=== PATIENT | male | born 1970 | race Caucasian/White ===

== ENCOUNTER 2020-10-19 20:24 | Observation (INO) | payer BC ==
[2020-10-19 21:16] LABS: #Eosinphils 0.2 thou/uL (0.0-0.7); #Lymphocytes 3.7 thou/uL (1.20-3.40); #Monocytes 1.3 thou/uL (0.11-0.59); %Basophils 0.1 % (0.0-1.0); %Eosinophils 1.7 % (0.0-10.0); %Lymphocytes 27.9 % (21.0-51.0); %Monocytes 9.8 % (0.0-10.0); %Neutrophils 60.5 % (42.0-75.0); Hemoglobin 14.8 g/dL (14.0-18.0); Mean Corpuscular HGB CONC 34.4 g/dL (32.0-36.0); Mean Corpuscular Hemoglobin 30.9 pg (27.0-31.0); Mean Corpuscular Volume 89.7 fL (78.0-98.0); Mean Platelet Volume 6.6 fL (7.4-10.4); Platelet Count 276 thou/uL (130-400); RBC Distribution Width 12.4 % (11.5-14.5); White Blood Cell (WBC) Count 13.2 thou/uL (4.8-10.8)
[2020-10-19 21:39] LABS: ALT (SGPT) 32 U/L (8-55); AST (SGOT) 24 U/L (5-34); Albumin 3.8 g/dL (3.5-5.0); Alkaline Phosphatase 65 U/L (40-110); Anion Gap 11 mmol/L (10-20); BUN (Urea Nitrogen) 11 mg/dL (8.9-20.6); Bilirubin, Total 0.5 mg/dL (0.2-1.2); Calc. Creatinine Clearance 0 mL/min (70-130); Calcium 8.3 mg/dL (7.8-10.44); Carbon Dioxide 25 mmol/L (22-29); Chloride 103 mmol/L (98-107); Glucose 102 mg/dL (70-105); Potassium 3.8 mmol/L (3.5-5.1); Protein, Total 8.8 g/dL (6.0-8.3); Sodium 135 mmol/L (136-145)
[2020-10-19] MEDS ORDERED: Acetaminophen 500 MG TAB ONE (22:23)
[2020-10-19] MEDS ORDERED: Fentanyl 100 MCG/2 ML VIAL ONE (23:25)
[2020-10-19] MEDS ORDERED: Ondansetron PF 4 MG/2 ML Vial ONE (23:25)
[2020-10-20] MEDS ORDERED: Ondansetron PF 4 MG/2 ML Vial IVP PRN ×2 (01:15→02:33)
[2020-10-20] MEDS ORDERED: Acetaminophen 325 MG TAB PO PRN ×2 (01:15→02:33)
[2020-10-20] MEDS ORDERED: Ondansetron ODT 4 MG TAB SL PRN (01:15)
[2020-10-20 01:22] VITALS: BMI 40.6
[2020-10-20] MEDS ORDERED: Morphine 2 MG/ML VIAL SLOW IVP PRN (02:11)
[2020-10-20 02:30] LABS: Troponin I Less than 0.010 ng/mL (< 0.028)
[2020-10-20] MEDS ORDERED: Nitroglycerin 0.4 MG TAB (25 Tab Bottle) SL PRN (02:33)
[2020-10-20] MEDS ORDERED: Aspirin Chewable 81 MG TAB PO SCH (03:00)
[2020-10-20 04:32] LABS: #Eosinphils 0.1 thou/uL (0.0-0.7); #Monocytes 0.9 thou/uL (0.11-0.59); #Neutrophils 7.9 thou/uL (1.40-6.50); %Basophils 0.2 % (0.0-1.0); %Eosinophils 1.1 % (0.0-10.0); %Lymphocytes 18.1 % (21.0-51.0); %Monocytes 8.1 % (0.0-10.0); %Neutrophils 72.4 % (42.0-75.0); Mean Corpuscular HGB CONC 33.2 g/dL (32.0-36.0); Mean Corpuscular Hemoglobin 29.9 pg (27.0-31.0); Mean Platelet Volume 6.6 fL (7.4-10.4); Platelet Count 257 thou/uL (130-400); RBC Distribution Width 12.5 % (11.5-14.5); Red Blood Cell (RBC) Count 4.68 mill/uL (4.70-6.10); White Blood Cell (WBC) Count 10.8 thou/uL (4.8-10.8)
[2020-10-20 04:54] LABS: Troponin I 0.021 ng/mL (< 0.028)
[2020-10-20 04:57] LABS: Anion Gap 9 mmol/L (10-20); BUN (Urea Nitrogen) 13 mg/dL (8.9-20.6); Calc. Creatinine Clearance 150 mL/min (70-130); Calcium 8.3 mg/dL (7.8-10.44); Carbon Dioxide 22 mmol/L (22-29); Cardiac Risk 3.7 (Less than 4.5); Chloride 104 mmol/L (98-107); Cholesterol 118 mg/dl (< 200 Desired); Glucose 111 mg/dL (70-105); HDL Cholesterol 32 mg/dL (>60 Neg Risk); LDL Cholesterol, Calculated 51 mg/dL; Potassium 3.7 mmol/L (3.5-5.1); Sodium 131 mmol/L (136-145); Triglycerides 175 mg/dL (Less than 150)
[2020-10-20 07:54] LABS: Bacteria/HPF None Seen HPF (None Seen); Bilirubin Negative (Negative); Blood, Urine Negative (Negative); Clarity Clear (Clear); Glucose, Urine (Dipstick) Normal (Negative); Ketone, Urine Negative (Negative); Leukocyte Negative Leu/uL (Negative); Nitrite Negative (Negative); Protein, Urine (Dipstick) 10 mg/dL (Neg-Trace); RBC/HPF 0-3 HPF (0-3); Specific Gravity, Urine 1.023 (1.002-1.036); Squamous Epithelial None Seen HPF (0-3); Urobilinogen Normal mg/dL (Less than 2); WBC/HPF 0-3 HPF (0-3); pH, Urine 5.5 (5.0-9.0)
[2020-10-20 07:59] LABS: Urine Culture Reflex No No
[2020-10-20 11:59] LABS: SARS-CoV-2 NAA Rapid Test Not Detected (NotDetected)
[2020-10-20 16:42] VITALS: BP 131/78; TEMP 98.8
[2020-10-20] MEDS ORDERED: Atorvastatin Calcium 20 MG TAB PO SCH (21:00)
== END 2020-10-20 17:20 | disposition home or self-care (01) ==
LOC: ERS 20:24 → 2NO 10-20 00:14
PROVIDERS: ADMIT Internal Medicine; ATTEND Internal Medicine
DX: R07.89 Other chest pain (principal); I10 Essential (primary) hypertension; E78.5 Hyperlipidemia, unspecified; F17.210 Nicotine dependence, cigarettes, uncomplicated; D72.829 Elevated white blood cell count, unspecified; Z79.82 Long term (current) use of aspirin; Z79.899 Other long term (current) drug therapy; Z88.0 Allergy status to penicillin; Z88.5 Allergy status to narcotic agent; Z20.822 Contact with and (suspected) exposure to COVID-19
CPT/HCPCS: 0240U; 36415; 71045; 78452; 80048; 80053; 80061; 81001; 84484; 85025; 85379; 93005; 93010; 93017; 94760; 96374; 96375; A9500; G0378; J0153; J2405; J3010

== ENCOUNTER 2022-07-17 10:27 | Outpatient (CLI) | payer BC ==
[2022-07-17 13:59] LABS: Hemoglobin 15.2 g/dL (13.5-17.5); Mean Corpuscular HGB CONC 35.8 g/dL (32.0-36.0); Mean Corpuscular Hemoglobin 31.3 pg (27.0-33.0); Mean Corpuscular Volume 87.6 fl (81.2-95.1); Mean Platelet Volume 9.4 fl (7.4-10.4); Platelet Count 237 10x3/uL (150-450); RBC Distribution Width 13.3 % (11.5-14.5); Red Blood Cell (RBC) Count 4.85 10x6/uL (4.32-5.72)
[2022-07-17 14:09] LABS: Anion Gap 11 mmol/L (10-20); BUN (Urea Nitrogen) 9 mg/dL (8.4-25.7); Calc. Creatinine Clearance 0 mL/min (70-130); Calcium 8.9 mg/dL (7.8-10.44); Carbon Dioxide 25 mmol/L (22-29); Chloride 108 mmol/L (98-107); Estimated GFR 105; Glucose 82 mg/dL (70-105); Potassium 4.2 mmol/L (3.5-5.1); Sodium 140 mmol/L (136-145)
== END 2022-07-17 10:28 | disposition home or self-care (01) ==
LOC: LABBT 10:27
PROVIDERS: ATTEND Neurological Surgery
DX: Z01.818 Encounter for other preprocedural examination (principal); M54.16 Radiculopathy, lumbar region
CPT/HCPCS: 80048; 85027; 93005; 93010

== ENCOUNTER 2022-07-21 06:54 | Day surgery (SDC) | payer BC ==
[2022-07-18 10:26] VITALS: BMI 40.3
[2022-07-21] MEDS ORDERED: Levofloxacin 500 mg/D5W 100 ml Premix Bag ONE (09:35)
[2022-07-21] MEDS ORDERED: Clindamycin/D5W 900 mg/50 ml Premix Bag ONE (09:35)
[2022-07-21 10:08] LABS: SARS-CoV-2 NAA Rapid Test Not Detected (NotDetected)
[2022-07-21] MEDS ORDERED: Fentanyl 250 MCG/5 ML VIAL ONE (11:00)
[2022-07-21] MEDS ORDERED: Vancomycin 1 GM VIAL ONE (11:01)
[2022-07-21] MEDS ORDERED: ePHEDrine 50 MG/ML VIAL ONE (11:08)
[2022-07-21] MEDS ORDERED: Glycopyrrolate 0.2 MG/ML 5 ML SYRINGE ONE (11:08)
[2022-07-21] MEDS ORDERED: PROPOFOL 200 MG/20 ML VIAL ONE (11:08)
[2022-07-21] MEDS ORDERED: Lidocaine 1% PF 5 ML VIAL ONE (11:08)
[2022-07-21] MEDS ORDERED: Dexamethasone 20 MG/5 ML VIAL ONE (11:08)
[2022-07-21] MEDS ORDERED: Rocuronium Bromide 10 MG/ML (10ML VIAL) ONE (11:08)
[2022-07-21] MEDS ORDERED: NEOSTIGMINE 3 MG/3 ML SYR 3 MG/3 ML SYRINGE ONE (11:08)
[2022-07-21] MEDS ORDERED: Labetalol HCl 100 MG/20 ML VIAL ONE (11:08)
[2022-07-21] MEDS ORDERED: Fentanyl 100 MCG/2 ML VIAL ONE ×2 (13:02→13:32)
[2022-07-21] MEDS ORDERED: Tamsulosin HCl 0.4 MG CAP ONE (13:02)
[2022-07-21] MEDS ORDERED: traMADol HCl 50 MG TAB ONE (15:20)
[2022-07-21] MEDS ORDERED: Cyclobenzaprine 10 MG TAB ONE (16:03)
[2022-07-21] MEDS ORDERED: Acetaminophen/Codeine 30-300mg Tablet ONE (17:20)
== END 2022-07-21 18:26 | disposition home or self-care (01) ==
LOC: SDC 06:54
PROVIDERS: ATTEND Neurological Surgery
PROC: 0SG30AJ Fusion of Lumbosacral Joint with Interbody Fusion Device, Posterior Approach, Anterior Column, Open Approach (ICD-10-PCS; principal; 2022-07-21)
DX: M51.27 Other intervertebral disc displacement, lumbosacral region (principal); M54.16 Radiculopathy, lumbar region; C90.00 Multiple myeloma not having achieved remission; Z79.61 Long term (current) use of immunomodulator; Z79.899 Other long term (current) drug therapy; Z88.0 Allergy status to penicillin; Z88.5 Allergy status to narcotic agent; Z20.822 Contact with and (suspected) exposure to COVID-19
CPT/HCPCS: C1713; C1768; C1776; C1889; J1100; J1956; J2704; J3010; J3370; J3490; U0002

== ENCOUNTER 2022-07-24 10:09 | Emergency (ER) | payer BC ==
[2022-07-24] MEDS ORDERED: Fentanyl 100 MCG/2 ML VIAL ONE (12:06)
[2022-07-24] MEDS ORDERED: Acetaminophen 500 MG TAB ONE (12:29)
[2022-07-24 13:36] LABS: Hemoglobin 12.9 g/dL (14.0-18.0); Mean Corpuscular Hemoglobin 31.8 pg (27.0-31.0); Mean Corpuscular Volume 93.4 fl (78.0-98.0); Mean Platelet Volume 6.9 fL (7.4-10.4); Platelet Count 187 10x3/uL (130-400); Red Blood Cell (RBC) Count 4.07 mill/uL (4.70-6.10)
[2022-07-24] MEDS ORDERED: Ketorolac Tromethamine 30 MG/ML VIAL ONE ×2 (13:39→14:05)
[2022-07-24 13:57] LABS: ALT (SGPT) 31 U/L (8-55); AST (SGOT) 34 U/L (5-34); Albumin 3.8 g/dL (3.5-5.0); Alkaline Phosphatase 54 U/L (40-110); Anion Gap 15 mmol/L (10-20); BUN (Urea Nitrogen) 12 mg/dL (8.4-25.7); Bilirubin, Total 1.2 mg/dL (0.2-1.2); Calc. Creatinine Clearance 0 mL/min (70-130); Calcium 8.9 mg/dL (7.8-10.44); Carbon Dioxide 21 mmol/L (22-29); Chloride 103 mmol/L (98-107); Estimated GFR 108; Globulin 2.8 g/dL (2.4-3.5); Glucose 97 mg/dL (70-105); Potassium 3.6 mmol/L (3.5-5.1); Protein, Total 6.6 g/dL (6.0-8.3); Sodium 135 mmol/L (136-145)
[2022-07-24 14:03] LABS: Band 4 % (5-11); Eosinophils 1 % (0-10); Lymphocytes 8 % (21-51); MDiff Complete? YES; Monocytes 11 % (0-10); Neutrophil 70 % (42-75); Platelet Morphology Comment Appears Adequate; Polychromasia SLIGHT = 2-3 cells (100X) (0-2/hpf); Reactive Lymphocytes 6 % (0-10)
[2022-07-24] MEDS ORDERED: Orphenadrine Citrate 60 MG/2 ML VIAL IM SCH (14:45)
[2022-07-24] MEDS ORDERED: Orphenadrine Citrate 60 MG/2 ML VIAL ONE (15:02)
== END 2022-07-24 16:10 | disposition home or self-care (01) ==
LOC: ERS 10:09
DX: G89.18 Other acute postprocedural pain (principal); E78.5 Hyperlipidemia, unspecified; I10 Essential (primary) hypertension; Z87.891 Personal history of nicotine dependence; Z79.899 Other long term (current) drug therapy
CPT/HCPCS: 36415; 80053; 85025; 96372; 96374; 96375; J1885; J2360; J3010

== ENCOUNTER 2022-08-08 09:14 | Outpatient (CLI) | payer BC | END 2022-08-08 09:15 | disposition home or self-care (01) | LOC: TBSIIMAG 09:14 | PROVIDERS: ATTEND Neurological Surgery | DX: M47.26 Other spondylosis with radiculopathy, lumbar region (principal); Z98.890 Other specified postprocedural states | CPT/HCPCS: 72100 ==

== ENCOUNTER 2022-10-11 23:14 | Inpatient (IN) | payer BC ==
[2022-10-12 00:28] VITALS: BMI 39.8
[2022-10-12] MEDS ORDERED: Nitroglycerin 0.4 MG TAB (25 Tab Bottle) SL PRN (02:24)
[2022-10-12] MEDS ORDERED: Ondansetron ODT 4 MG TAB PO PRN (02:24)
[2022-10-12] MEDS ORDERED: Acetaminophen 325 MG TAB PO PRN (02:24)
[2022-10-12] MEDS ORDERED: Ondansetron PF 4 MG/2 ML Vial IVP PRN (02:24)
[2022-10-12] MEDS ORDERED: Acetaminophen 650 MG Suppository PR PRN (02:24)
[2022-10-12] MEDS: Morphine 4 MG/ML VIAL SLOW IVP PRN ×4 (03:11→20:11)
[2022-10-12 05:46] LABS: Anion Gap 14 mmol/L (10-20); BUN (Urea Nitrogen) 11 mg/dL (8.4-25.7); Calc. Creatinine Clearance 152 mL/min (70-130); Carbon Dioxide 23 mmol/L (22-29); Cardiac Risk 4.9 (Less than 4.5); Chloride 105 mmol/L (98-107); Cholesterol 138 mg/dl (< 200 Desired); Estimated GFR 102; Glucose 96 mg/dL (70-105); HDL Cholesterol 28 mg/dL (>60 Neg Risk); LDL Cholesterol, Calculated 63 mg/dL; Potassium 3.9 mmol/L (3.5-5.1); Sodium 138 mmol/L (136-145); Triglycerides 234 mg/dL (Less than 150)
[2022-10-12 05:52] LABS: Troponin I Less than 0.010 ng/mL (< 0.028)
[2022-10-12 06:16] LABS: Eosinophils 1 % (0-10); Lymphocytes 33 % (21-51); MDiff Complete? YES; Mean Corpuscular HGB CONC 36.9 g/dL (32.0-36.0); Mean Corpuscular Hemoglobin 33.1 pg (27.0-31.0); Mean Corpuscular Volume 89.9 fl (78.0-98.0); Mean Platelet Volume 6.4 fL (7.4-10.4); Monocytes 18 % (0-10); Neutrophil 48 % (42-75); Platelet Count 160 10x3/uL (130-400); Platelet Morphology Comment Appears Adequate; RBC Morphology Normal; Red Blood Cell (RBC) Count 4.22 mill/uL (4.70-6.10); White Blood Cell (WBC) Count 5.9 10x3/uL (4.8-10.8)
[2022-10-12] MEDS: Aspirin Chewable 81 MG TAB PO SCH (07:40)
[2022-10-12 16:10] LABS: Troponin I Less than 0.010 ng/mL (< 0.028)
[2022-10-12] MEDS: Atorvastatin Calcium 40 MG TAB PO SCH (20:11)
[2022-10-13] MEDS: Morphine 4 MG/ML VIAL SLOW IVP PRN ×3 (02:18→19:30)
[2022-10-13] MEDS: Aspirin Chewable 81 MG TAB PO SCH (05:20)
[2022-10-13] MEDS ORDERED: Verapamil 5 MG/2 ML VIAL ONE (06:31)
[2022-10-13] MEDS ORDERED: Nitroglycerin 50 MG/250 ML BOT 250 ML ONE (06:31)
[2022-10-13] MEDS ORDERED: Heparin 10,000 UNITS/ 10 ML VIAL ONE ×2 (06:31→07:12)
[2022-10-13] MEDS ORDERED: Lidocaine 1% (PF) 30 ML VIAL ONE (06:32)
[2022-10-13] MEDS ORDERED: Midazolam HCl 2 mg/2 ml Vial ONE (07:11)
[2022-10-13] MEDS ORDERED: fentaNYL 50 mcg/mL 1 mL Vial ONE (07:12)
[2022-10-13] MEDS ORDERED: Sodium Chloride 0.9% 200 ML IV PRN (07:42)
[2022-10-13] MEDS ORDERED: Nitroglycerin 0.4 MG TAB (25 Tab Bottle) SL PRN (07:42)
[2022-10-13] MEDS ORDERED: Lorazepam 2 MG/ML VIAL SLOW IVP SCH (08:45)
[2022-10-13] MEDS: Sodium Chloride 0.9% 1,000 ML IV SCH ×2 (08:53→15:13)
[2022-10-13] MEDS ORDERED: Magnevist 469MG/ML 20 ML VIAL ONE (11:30)
[2022-10-13] MEDS: Atorvastatin Calcium 40 MG TAB PO SCH (21:12)
[2022-10-13] MEDS ORDERED: oxyCODONE/Acetaminophen 5 mg/325 mg Tablet PO PRN (22:13)
[2022-10-14 03:31] VITALS: TEMP 97.7
[2022-10-14 05:33] LABS: ALT (SGPT) 22 U/L (8-55); AST (SGOT) 25 U/L (5-34); Albumin 4.1 g/dL (3.5-5.0); Alkaline Phosphatase 72 U/L (40-110); Anion Gap 13 mmol/L (10-20); BUN (Urea Nitrogen) 11 mg/dL (8.4-25.7); Bilirubin, Total 0.5 mg/dL (0.2-1.2); Calc. Creatinine Clearance 157 mL/min (70-130); Calcium 8.9 mg/dL (7.8-10.44); Carbon Dioxide 25 mmol/L (22-29); Chloride 106 mmol/L (98-107); Estimated GFR 104; Globulin 2.5 g/dL (2.4-3.5); Glucose 93 mg/dL (70-105); Potassium 4.4 mmol/L (3.5-5.1); Protein, Total 6.6 g/dL (6.0-8.3); Sodium 140 mmol/L (136-145)
[2022-10-14 05:40] LABS: Band 2 % (5-11); Eosinophils 1 % (0-10); Hemoglobin 12.9 g/dL (14.0-18.0); Lymphocytes 23 % (21-51); MDiff Complete? YES; Mean Corpuscular HGB CONC 34.5 g/dL (32.0-36.0); Mean Corpuscular Hemoglobin 31.3 pg (27.0-31.0); Mean Corpuscular Volume 90.5 fl (78.0-98.0); Mean Platelet Volume 6.2 fL (7.4-10.4); Monocytes 18 % (0-10); Neutrophil 56 % (42-75); Platelet Count 142 10x3/uL (130-400); Platelet Morphology Comment Appears Adequate; RBC Distribution Width 12.9 % (11.5-14.5); RBC Morphology Normal; Red Blood Cell (RBC) Count 4.11 mill/uL (4.70-6.10); White Blood Cell (WBC) Count 5.2 10x3/uL (4.8-10.8)
[2022-10-14 08:52] VITALS: BP 139/88
[2022-10-14] MEDS ORDERED: Aspirin 81 mg Enteric Coated Tablet PO SCH (09:00)
[2022-10-14] MEDS: Morphine 4 MG/ML VIAL SLOW IVP PRN (09:11)
== END 2022-10-14 11:10 | disposition home or self-care (01) | DRG 287 ==
LOC: 2SW 23:53 → UNDOADMOB 23:53 → 2SW 10-12 02:24 → OBSVTOIN 10-13 08:06
PROVIDERS: ADMIT Student in an Organized Health Care Education/Training Program; ATTEND Internal Medicine
PROC: 4A023N7 Measurement of Cardiac Sampling and Pressure, Left Heart, Percutaneous Approach (ICD-10-PCS; principal; 2022-10-13)
PROC: B2111ZZ Fluoroscopy of Multiple Coronary Arteries using Low Osmolar Contrast (ICD-10-PCS; 2022-10-13)
PROC: B2151ZZ Fluoroscopy of Left Heart using Low Osmolar Contrast (ICD-10-PCS; 2022-10-13)
DX: R07.89 Other chest pain (principal); C90.00 Multiple myeloma not having achieved remission; Z94.84 Stem cells transplant status; I10 Essential (primary) hypertension; E78.5 Hyperlipidemia, unspecified; R91.1 Solitary pulmonary nodule; Z79.82 Long term (current) use of aspirin; Z79.899 Other long term (current) drug therapy; Z88.0 Allergy status to penicillin; Z88.6 Allergy status to analgesic agent; Z86.16 Personal history of COVID-19; Z87.891 Personal history of nicotine dependence
CPT/HCPCS: 36415; 70553; 71045; 78452; 80048; 80053; 80061; 84484; 85025; 93017; 93306; 93458; 96374; 96376; 99152; A9500; A9579; C1769; C1894; G0378; J0153; J1644; J2001; J2060; J2250; J2270; J3010; J7050

== ENCOUNTER 2022-10-30 13:17 | Outpatient (CLI) | payer BC | END 2022-10-30 13:18 | disposition home or self-care (01) | LOC: TBSIIMAG 13:17 | PROVIDERS: ATTEND Neurological Surgery | DX: M51.16 Intervertebral disc disorders with radiculopathy, lumbar region (principal); M54.50 Low back pain, unspecified; Z98.890 Other specified postprocedural states | CPT/HCPCS: 72100 ==

== ENCOUNTER 2022-11-03 21:25 | Emergency (ER) | payer BC ==
[2022-11-03 23:29] LABS: #Eosinphils 0.1 thou/uL (0.0-0.7); #Monocytes 1.9 thou/uL (0.11-0.59); #Neutrophils 5.1 thou/uL (1.40-6.50); %Basophils 0.2 % (0.0-1.0); %Eosinophils 1.3 % (0.0-10.0); %Lymphocytes 18.8 % (21.0-51.0); %Monocytes 21.3 % (0.0-10.0); %Neutrophils 58.1 % (42.0-75.0); Hemoglobin 13.1 g/dL (14.0-18.0); Manual Diff?? YES; Mean Corpuscular HGB CONC 34.3 g/dL (32.0-36.0); Mean Corpuscular Hemoglobin 29.4 pg (27.0-31.0); Mean Corpuscular Volume 85.8 fl (78.0-98.0); Mean Platelet Volume 8.9 fL (7.4-10.4); Platelet Count 189 10x3/uL (130-400); RBC Distribution Width 13.1 % (11.5-14.5); Red Blood Cell (RBC) Count 4.45 mill/uL (4.70-6.10); White Blood Cell (WBC) Count 8.7 10x3/uL (4.8-10.8)
[2022-11-03 23:58] LABS: ALT (SGPT) 42 U/L (8-55); AST (SGOT) 26 U/L (5-34); Albumin 4.4 g/dL (3.5-5.0); Alkaline Phosphatase 76 U/L (40-110); Anion Gap 15 mmol/L (10-20); BUN (Urea Nitrogen) 19 mg/dL (8.4-25.7); Bilirubin, Total 0.4 mg/dL (0.2-1.2); Calc. Creatinine Clearance 0 mL/min (70-130); Calcium 9.4 mg/dL (7.8-10.44); Carbon Dioxide 22 mmol/L (22-29); Chloride 104 mmol/L (98-107); Estimated GFR 73; Globulin 2.5 g/dL (2.4-3.5); Glucose 87 mg/dL (70-105); Lipase 23 U/L (8-78); Potassium 4.2 mmol/L (3.5-5.1); Protein, Total 6.9 g/dL (6.0-8.3); Sodium 137 mmol/L (136-145)
[2022-11-04 00:04] LABS: Band 4 % (5-11); CellaVision Operator ID lab.sh2; Eosinophils 2 % (0-10); Lymphocytes 18 % (21-51); Monocytes 12 % (0-10); Neutrophil 64 % (42-75); Platelet Morphology Comment Platelets Normal; Polychromasia SLIGHT = 2-3 cells HPF (0-2); Total Cell Count 100
[2022-11-04] MEDS ORDERED: Ketorolac Tromethamine 30 MG/ML VIAL ONE (01:24)
[2022-11-04] MEDS ORDERED: Morphine 4 MG/ML VIAL ONE (02:29)
== END 2022-11-04 03:07 | disposition home or self-care (01) ==
LOC: ERS 21:25
DX: R07.9 Chest pain, unspecified (principal); E78.5 Hyperlipidemia, unspecified; I10 Essential (primary) hypertension; Z79.899 Other long term (current) drug therapy; Z79.82 Long term (current) use of aspirin
CPT/HCPCS: 36415; 71045; 80053; 83690; 84484; 85025; 93005; 96372; J1885; J2270

== ENCOUNTER 2022-11-07 12:02 | Outpatient (CLI) | payer BC ==
[~2022-11-07 12:02] MED LIST: Iopamidol 370 76% 100 ML VIAL ONE
== END 2022-11-07 12:03 | disposition home or self-care (01) ==
LOC: PET 12:02
PROVIDERS: ATTEND Internal Medicine Hematology & Oncology
DX: C90.00 Multiple myeloma not having achieved remission (principal); C79.51 Secondary malignant neoplasm of bone; K76.89 Other specified diseases of liver; R91.8 Other nonspecific abnormal finding of lung field; G95.89 Other specified diseases of spinal cord; E27.8 Other specified disorders of adrenal gland; K86.89 Other specified diseases of pancreas
CPT/HCPCS: 74150; 78815; A9552; Q9967

== ENCOUNTER 2023-04-20 09:20 | Day surgery (SDC) | payer BC ==
[2023-04-17 14:39] VITALS: BMI 38.1
[2023-04-20] MEDS ORDERED: Ketorolac Tromethamine 30 MG/ML VIAL ONE (10:03)
[2023-04-20] MEDS ORDERED: Acetaminophen 500 MG TAB ONE (10:03)
[2023-04-20] MEDS ORDERED: Lidocaine 2% PF 5 ML VIAL ONE (11:46)
[2023-04-20] MEDS ORDERED: Bupivacaine 0.25% HCL 30 ML VIAL ONE (11:46)
[2023-04-20] MEDS ORDERED: PROPOFOL 40 ML ONE (11:48)
[2023-04-20] MEDS ORDERED: Midazolam HCl 2 mg/2 ml Vial ONE (11:48)
[2023-04-20] MEDS ORDERED: fentaNYL 50 mcg/mL 1 mL Vial ONE (11:48)
[2023-04-20] MEDS ORDERED: Famotidine/PF 20 mg/2ml Vial ONE (11:49)
[2023-04-20] MEDS ORDERED: EPINEPHrine 1 MG/ML AMP ONE (11:57)
[2023-04-20] MEDS ORDERED: CEFAZOLIN 2 GM VIAL ONE (12:43)
[2023-04-20] MEDS ORDERED: Sodium Chloride 0.9% 100 ML ONE (12:43)
[2023-04-20] MEDS ORDERED: Dexmedetomidine 200 MCG/2 ML VIAL ONE (13:10)
[2023-04-20] MEDS ORDERED: Lidocaine 1% PF 5 ML VIAL ONE (13:21)
[2023-04-20] MEDS ORDERED: Ondansetron PF 4 MG/2 ML Vial ONE (13:21)
[2023-04-20] MEDS ORDERED: PROPOFOL 200 MG/20 ML VIAL ONE (13:21)
[2023-04-20] MEDS ORDERED: Bacitracin-Polymyxin B Opth Oint 3.5 GM TUBE L EYE PRN (15:04)
== END 2023-04-20 15:25 | disposition home or self-care (01) ==
LOC: SDC 09:20
PROVIDERS: ATTEND Specialist
PROC: 0JH63WZ Insertion of Totally Implantable Vascular Access Device into Chest Subcutaneous Tissue and Fascia, Percutaneous Approach (ICD-10-PCS; principal; 2023-04-20)
DX: C90.00 Multiple myeloma not having achieved remission (principal); Z88.0 Allergy status to penicillin; Z88.5 Allergy status to narcotic agent; Z87.891 Personal history of nicotine dependence
CPT/HCPCS: 36416; 71045; 93005; 93010; C1788; J0171; J1642; J1885; J2001; J2250; J2405; J2704; J3010; J3490; S0020; S0028

== ENCOUNTER → 2023-06-05 | Outpatient (CLI) | payer BC | LOC: PET 11:45 | PROVIDERS: ATTEND Internal Medicine Hematology & Oncology | DX: C90.00 Multiple myeloma not having achieved remission (principal); C79.51 Secondary malignant neoplasm of bone; C25.0 Malignant neoplasm of head of pancreas; M89.9 Disorder of bone, unspecified; K86.89 Other specified diseases of pancreas | CPT/HCPCS: 78815; A9552 ==

== ENCOUNTER 2023-09-17 23:58 | Inpatient (IN) | payer BC ==
[2023-09-18 00:28] VITALS: BMI 38.7
[2023-09-18] MEDS ORDERED: Morphine ER 15 MG TAB PO PRN (01:02)
[2023-09-18] MEDS ORDERED: Ondansetron PF 4 MG/2 ML Vial IVP PRN (01:03)
[2023-09-18] MEDS ORDERED: Pharmacy to Dose : VANC/ABX'S IVPB PRN (01:13)
[2023-09-18] MEDS ORDERED: Ipratropium/Albuterol 3 ML NEB NEB PRN (01:43)
[2023-09-18] MEDS: diphenhydrAMINE 25 MG CAP PO SCH (02:01)
[2023-09-18] MEDS: Morphine ER 15 MG TAB PO PRN (03:33)
[2023-09-18 05:42] LABS: Influenza A by NAA Not Detected (NotDetected); Influenza B by NAA Not Detected (NotDetected); SARS-CoV-2 NAA Rapid Test Not Detected (NotDetected)
[2023-09-18 06:09] LABS: Anion Gap 11 mmol/L (10-20); BUN (Urea Nitrogen) 11 mg/dL (8.4-25.7); Calc. Creatinine Clearance 155 mL/min (70-130); Carbon Dioxide 24 mmol/L (22-29); Chloride 107 mmol/L (98-107); Estimated GFR 104; Glucose 88 mg/dL (70-105); Sodium 138 mmol/L (136-145)
[2023-09-18 06:34] LABS: Hematocrit 32.2 % (42.0-52.0); Hemoglobin 11.2 g/dL (14.0-18.0); Mean Corpuscular HGB CONC 34.8 g/dL (32.0-36.0); Mean Corpuscular Hemoglobin 31.4 pg (27.0-31.0); Mean Corpuscular Volume 90.2 fl (78.0-98.0); Mean Platelet Volume 9.8 fL (7.4-10.4); Platelet Count 81 10x3/uL (130-400); RBC Distribution Width 17.2 % (11.5-14.5); Red Blood Cell (RBC) Count 3.57 mill/uL (4.70-6.10); White Blood Cell (WBC) Count 2.3 10x3/uL (4.8-10.8)
[2023-09-18 07:56] LABS: RBC Morphology Within Normal Limits
[2023-09-18 07:58] LABS: %Neutrophils 56.1 % (42.0-75.0)
[2023-09-18 07:59] LABS: #Basophils Less than 0.0 thou/uL (0.0-0.2); #Eosinphils 0.1 thou/uL (0.0-0.7); #Monocytes 0.2 thou/uL (0.11-0.59); #Neutrophils 1.3 thou/uL (1.40-6.50); %Eosinophils 1.8 % (0.0-10.0); %Monocytes 8.4 % (0.0-10.0)
[2023-09-18 08:11] LABS: Bacteria/HPF None Seen HPF (None Seen); Bilirubin Negative (Negative); Blood, Urine Negative (Negative); Clarity Clear (Clear); Glucose, Urine (Dipstick) Normal (Negative); Ketone, Urine Negative (Negative); Leukocyte Negative Leu/uL (Negative); Nitrite Negative (Negative); Protein, Urine (Dipstick) 20 mg/dL (Neg-Trace); RBC/HPF 0-3 HPF (0-3); Specific Gravity, Urine 1.024 (1.002-1.036); Squamous Epithelial None Seen HPF (0-3); Urobilinogen Normal mg/dL (Less than 2); WBC/HPF 0-3 HPF (0-3); pH, Urine 6.5 (5.0-9.0)
[2023-09-18] MEDS: Cefepime 1 GM in Sodium Chloride 0.9% 100 ML IVPB SCH (08:59)
[2023-09-18] MEDS: Escitalopram Oxalate 10 mg Tablet PO SCH (09:00)
[2023-09-18] MEDS: valACYclovir 500 MG TAB PO SCH (09:00)
[2023-09-18] MEDS: Lisinopril 20 MG TAB PO SCH (09:00)
[2023-09-18] MEDS: Potassium Chloride 20 MEQ TAB PO SCH (09:00)
[2023-09-18] MEDS: Acetaminophen 325 MG TAB PO PRN (09:00)
[2023-09-18] MEDS: Aspirin 81 mg Enteric Coated Tablet PO SCH (09:00)
[2023-09-18] MEDS ORDERED: Vancomycin 1 GM in Sodium Chloride 0.9% 250 ML 250 ML IVPB SCH (09:00)
[2023-09-18] MEDS: Vancomycin (BATCH) 1.5 GM in Premix 1 BAG IVPB SCH (09:50)
[2023-09-18 14:59] LABS: Platelet Adequacy Comment Significant decrease
[2023-09-18] MEDS: Cefepime 2 GM in Sodium Chloride 0.9% 100 ML IVPB SCH (20:58)
[2023-09-18] MEDS: Atorvastatin Calcium 40 MG TAB PO SCH (20:59)
[2023-09-19 04:40] LABS: #Basophils Less than 0.03 10x3/uL (0.0-0.2); %Basophils 0.4 % (0.0-1.0); %Eosinophils 1.9 % (0.0-10.0); %Monocytes 14.6 % (0.0-10.0); %Neutrophils 51.7 % (42.0-75.0); Hematocrit 34.1 % (42.0-52.0); Hemoglobin 11.6 g/dL (14.0-18.0); Mean Corpuscular Hemoglobin 31.2 pg (27.0-31.0); Mean Corpuscular Volume 91.7 fL (78.0-98.0); Mean Platelet Volume 9.8 fL (7.4-10.4); Platelet Count 81 10x3/uL (130-400); RBC Distribution Width 17.2 % (11.5-14.5); Red Blood Cell (RBC) Count 3.72 mill/uL (4.70-6.10)
[2023-09-19 04:56] LABS: Vancomycin, Random 18.8 ug/mL (See Comment)
[2023-09-19 05:05] LABS: ALT (SGPT) 11 U/L (8-55); AST (SGOT) 10 U/L (5-34); Albumin 3.3 g/dL (3.5-5.0); Alkaline Phosphatase 43 U/L (40-110); Anion Gap 12 mmol/L (10-20); BUN (Urea Nitrogen) 9 mg/dL (8.4-25.7); Bilirubin, Total 0.8 mg/dL (0.2-1.2); Calc. Creatinine Clearance 150 mL/min (70-130); Calcium 8.1 mg/dL (7.8-10.44); Carbon Dioxide 22 mmol/L (22-29); Chloride 106 mmol/L (98-107); Estimated GFR 103; Globulin 2.1 g/dL (2.4-3.5); Glucose 86 mg/dL (70-105); Potassium 3.8 mmol/L (3.5-5.1); Protein, Total 5.4 g/dL (6.0-8.3); Sodium 136 mmol/L (136-145)
[2023-09-19 05:09] LABS: Band 18 % (5-11); Eosinophils 4 % (0-10); Lymphocytes 23 % (21-51); Monocytes 19 % (0-10); Neutrophil 32 % (42-75); Platelet Adequacy Comment Platelets Decreased; RBC Morphology Within Normal Limits; Reactive Lymphocytes 5 % (0-10); Smudge Cells 8.8 %
[2023-09-19] MEDS ORDERED: Morphine ER 30 MG TAB PO PRN (17:43)
[2023-09-19] MEDS ORDERED: Morphine ER 15 MG TAB PO PRN (17:44)
[2023-09-20 05:06] LABS: Hematocrit 33.2 % (42.0-52.0); Hemoglobin 11.4 g/dL (14.0-18.0); Mean Corpuscular HGB CONC 34.3 g/dL (32.0-36.0); Mean Corpuscular Volume 90.2 fL (78.0-98.0); Mean Platelet Volume 10.3 fL (7.4-10.4); Platelet Count 88 10x3/uL (130-400); RBC Distribution Width 16.8 % (11.5-14.5); Red Blood Cell (RBC) Count 3.68 mill/uL (4.70-6.10)
[2023-09-20 05:22] LABS: Vancomycin, Random 22.1 ug/mL (See Comment)
[2023-09-20 05:29] LABS: ALT (SGPT) 17 U/L (8-55); AST (SGOT) 18 U/L (5-34); Albumin 3.4 g/dL (3.5-5.0); Alkaline Phosphatase 41 U/L (40-110); Anion Gap 11 mmol/L (10-20); BUN (Urea Nitrogen) 9 mg/dL (8.4-25.7); Bilirubin, Total 0.7 mg/dL (0.2-1.2); Calc. Creatinine Clearance 159 mL/min (70-130); Calcium 8.2 mg/dL (7.8-10.44); Carbon Dioxide 24 mmol/L (22-29); Chloride 106 mmol/L (98-107); Estimated GFR 105; Globulin 2.2 g/dL (2.4-3.5); Glucose 91 mg/dL (70-105); Potassium 4.1 mmol/L (3.5-5.1); Protein, Total 5.6 g/dL (6.0-8.3); Sodium 137 mmol/L (136-145)
[2023-09-20 05:54] LABS: Band 17 % (5-11); Eosinophils 5 % (0-10); Lymphocytes 25 % (21-51); Monocytes 11 % (0-10); Neutrophil 38 % (42-75); Platelet Adequacy Comment Platelets Decreased; Polychromasia SLIGHT = 2-3 cells HPF (0-2); RBC Morphology Within Normal Limits; Reactive Lymphocytes 4 % (0-10)
[2023-09-20] MEDS ORDERED: Morphine IR Tab 15 MG TAB PO PRN (08:08)
[2023-09-20 08:28] VITALS: BP 129/94; TEMP 98.3
[2023-09-20] MEDS: Morphine ER 15 MG TAB PO SCH (08:43)
== END 2023-09-20 12:26 | disposition home or self-care (01) | DRG 194 ==
LOC: MSONC 23:58
PROVIDERS: ADMIT Internal Medicine; ATTEND Internal Medicine
DX: J18.9 Pneumonia, unspecified organism (principal); C90.00 Multiple myeloma not having achieved remission; Z94.84 Stem cells transplant status; F41.9 Anxiety disorder, unspecified; D69.6 Thrombocytopenia, unspecified; D70.3 Neutropenia due to infection; E78.5 Hyperlipidemia, unspecified; Z88.0 Allergy status to penicillin; Z79.82 Long term (current) use of aspirin; Z79.899 Other long term (current) drug therapy
CPT/HCPCS: 36415; 71045; 80048; 80053; 80202; 81001; 85025; J0692; J3370; J3490

== ENCOUNTER 2023-11-04 09:29 | Emergency (ER) | payer BC | END 2023-11-04 13:37 | disposition home or self-care (01) | LOC: ERS 09:29 | DX: K42.9 Umbilical hernia without obstruction or gangrene (principal); I10 Essential (primary) hypertension; C90.00 Multiple myeloma not having achieved remission; E78.5 Hyperlipidemia, unspecified; F17.290 Nicotine dependence, other tobacco product, uncomplicated; Z79.899 Other long term (current) drug therapy | CPT/HCPCS: 36415; 36416; 74177; 80053; 83605; 83690; 85025; 96361; 96374; 96375; J2270; J2405; Q9967 ==

== ENCOUNTER 2023-11-18 12:35 | Outpatient (CLI) | payer BC ==
[2023-11-18 13:50] LABS: #Basophils 0.01 10x3/uL (0.0-0.2); #Eosinphils 0.04 10x3/uL (0.0-0.5); #Monocytes 0.46 10x3/uL (0.0-1.1); #Neutrophils 7.19 10x3/uL (1.5-8.4); %Basophils 0.1 % (0.0-2.0); %Eosinophils 0.4 % (0.0-6.0); %Lymphocytes 17.8 % (18.0-47.0); %Monocytes 4.9 % (0.0-10.0); %Neutrophils 76.3 % (40.0-75.0); Hematocrit 35.4 % (38.8-50.0); Hemoglobin 12.5 g/dL (13.5-17.5); Mean Corpuscular HGB CONC 35.3 g/dL (32.0-36.0); Mean Corpuscular Hemoglobin 33.4 pg (27.0-33.0); Mean Corpuscular Volume 94.7 fl (81.2-95.1); Mean Platelet Volume 11.2 fl (7.4-10.4); Platelet Count 104 10x3/uL (150-450); RBC Distribution Width 13.9 % (11.5-14.5); Red Blood Cell (RBC) Count 3.74 10x6/uL (4.32-5.72); White Blood Cell (WBC) Count 9.4 10x3/uL (3.5-10.5)
[2023-11-18 14:09] LABS: ALT (SGPT) 20 U/L (8-55); AST (SGOT) 11 U/L (5-34); Albumin 3.5 g/dL (3.5-5.0); Alkaline Phosphatase 54 U/L (40-110); Anion Gap 14 mmol/L (10-20); BUN (Urea Nitrogen) 13 mg/dL (8.4-25.7); Bilirubin, Total 0.6 mg/dL (0.2-1.2); Calc. Creatinine Clearance 0 mL/min (70-130); Calcium 8.7 mg/dL (7.8-10.44); Carbon Dioxide 22 mmol/L (22-29); Chloride 109 mmol/L (98-107); Estimated GFR 103; Globulin 1.7 g/dL (2.4-3.5); Glucose 147 mg/dL (70-105); Potassium 4.2 mmol/L (3.5-5.1); Protein, Total 5.2 g/dL (6.0-8.3); Sodium 141 mmol/L (136-145)
[2023-11-18 14:28] LABS: Platelet Adequacy Comment Appears Decreased; Polychromasia SLIGHT = 2-3 cells (100X) (0-2/hpf)
== END 2023-11-18 12:36 | disposition home or self-care (01) ==
LOC: LABBT 12:35
PROVIDERS: ATTEND Surgery
DX: Z01.818 Encounter for other preprocedural examination (principal); K42.9 Umbilical hernia without obstruction or gangrene
CPT/HCPCS: 80053; 85025; 93005; 93010

== ENCOUNTER 2023-11-20 08:10 | Day surgery (SDC) | payer BC ==
[2023-11-18 13:06] VITALS: BMI 37.5
[2023-11-20] MEDS ORDERED: fentaNYL PF 100 MCG/2 ML SYRINGE ONE (11:12)
[2023-11-20] MEDS ORDERED: PROPOFOL 40 ML ONE (11:13)
[2023-11-20] MEDS ORDERED: Lidocaine 1% PF 5 ML VIAL ONE (11:13)
[2023-11-20] MEDS ORDERED: Bupivacaine 0.25% HCL 30 ML VIAL ONE (11:37)
[2023-11-20] MEDS ORDERED: EPINEPHrine 1 MG/ML VIAL ONE (11:37)
[2023-11-20] MEDS ORDERED: LevoFLOXacin D5W 500 mg (100 mL) BAG ONE (11:50)
[2023-11-20] MEDS ORDERED: Ketamine In 0.9 % NaCl 50 MG/5 ML SYRINGE ONE (11:56)
[2023-11-20] MEDS ORDERED: Ondansetron PF 4 MG/2 ML Vial ONE (12:12)
[2023-11-20] MEDS ORDERED: Dexamethasone 20 MG/5 ML VIAL ONE (12:12)
[2023-11-20] MEDS ORDERED: fentaNYL 50 mcg/mL 1 mL Vial ONE ×2 (13:04→13:13)
[2023-11-20] MEDS ORDERED: HYDROmorphone 0.5 MG/0.5 ML SYRINGE ONE ×2 (13:26→13:43)
[2023-11-20] MEDS ORDERED: traMADol HCl 50 MG TAB ONE (14:31)
== END 2023-11-20 15:08 | disposition home or self-care (01) ==
LOC: SDC 08:10
PROVIDERS: ATTEND Surgery
PROC: 0WUF0JZ Supplement Abdominal Wall with Synthetic Substitute, Open Approach (ICD-10-PCS; principal; 2023-11-20)
DX: K42.9 Umbilical hernia without obstruction or gangrene (principal); I10 Essential (primary) hypertension; E78.5 Hyperlipidemia, unspecified; F41.1 Generalized anxiety disorder; G47.33 Obstructive sleep apnea (adult) (pediatric); F32.A Depression, unspecified; Z87.891 Personal history of nicotine dependence; Z88.0 Allergy status to penicillin; Z88.5 Allergy status to narcotic agent; Z79.899 Other long term (current) drug therapy
CPT/HCPCS: A6258; C1781; J0171; J0665; J1100; J1170; J1956; J2405; J2704; J3010; J3490

== ENCOUNTER 2024-01-20 08:00 | Outpatient (CLI) | payer BC | END 2024-01-20 08:01 | disposition home or self-care (01) | LOC: PET 08:00 | PROVIDERS: ATTEND Internal Medicine Hematology & Oncology | DX: C25.0 Malignant neoplasm of head of pancreas (principal); C79.51 Secondary malignant neoplasm of bone; C90.00 Multiple myeloma not having achieved remission; M89.9 Disorder of bone, unspecified | CPT/HCPCS: 78815; A9552 ==

== ENCOUNTER 2024-04-27 11:45 | Outpatient (CLI) | payer BC | END 2024-04-27 11:46 | disposition home or self-care (01) | LOC: PET 11:45 | PROVIDERS: ATTEND Internal Medicine Hematology & Oncology | DX: C90.00 Multiple myeloma not having achieved remission (principal); C79.51 Secondary malignant neoplasm of bone; C25.0 Malignant neoplasm of head of pancreas; J98.4 Other disorders of lung | CPT/HCPCS: 78815; A9552 ==

== ENCOUNTER 2024-06-25 13:43 | Inpatient (IN) | payer BC ==
[2024-06-25] MEDS ORDERED: Albuterol 2.5 MG (3 mL) NEB ONE (14:55)
[2024-06-25 15:18] LABS: Actual Bicarbonate (HCO3v) 20.1 mEq/L (22-28); Analyzer IN Cardio ER; Base Excess -2.1 mEq/L (-2.0 to +3.0); Calcium, Ionized (venous) 1.03 mmol/L (1.16-1.32); Chloride (VBG) 105 mmol/L (98-106); Hematocrit-VBG 33 % (42.0-52.0); Hemoglobin (Hb) 11.2 g/dL (13.1-17.2); Potassium (VBG) 3.52 mmol/L (3.70-5.30); Sodium 139 mmol/L (133-146); pH (venous) 7.493 (7.32-7.43)
[2024-06-25] MEDS ORDERED: Ondansetron PF 4 MG/2 ML Vial ONE (15:26)
[2024-06-25] MEDS ORDERED: Cefepime 2 GM VIAL ONE (15:26)
[2024-06-25 15:32] LABS: #Basophils Less than 0.03 10x3/uL (0.0-0.2); #Eosinophils Less than 0.03 10x3/uL (0.0-0.7); %Lymphocytes 14.1 % (21.0-51.0); %Monocytes 10.4 % (0.0-10.0); Hematocrit 29.3 % (42.0-52.0); Hemoglobin 10.4 g/dL (14.0-18.0); Mean Corpuscular HGB CONC 35.5 g/dL (32.0-36.0); Mean Corpuscular Volume 87.5 fL (78.0-98.0); Mean Platelet Volume 13.8 fL (7.4-10.4); Platelet Count 64 10x3/uL (130-400); RBC Distribution Width 14.6 % (11.5-14.5); Red Blood Cell (RBC) Count 3.35 mill/uL (4.70-6.10)
[2024-06-25] MEDS ORDERED: Morphine 2 MG/ML VIAL ONE (15:42)
[2024-06-25 15:46] LABS: ALT (SGPT) 26 U/L (8-55); AST (SGOT) 17 U/L (5-34); Albumin 3.5 g/dL (3.5-5.0); Alkaline Phosphatase 52 U/L (40-110); Anion Gap 15 mmol/L (10-20); BUN (Urea Nitrogen) 6 mg/dL (8.4-25.7); Bilirubin, Total 0.6 mg/dL (0.2-1.2); Calc. Creatinine Clearance 0 mL/min (70-130); Calcium 8.1 mg/dL (7.8-10.44); Carbon Dioxide 18 mmol/L (22-29); Chloride 110 mmol/L (98-107); Estimated GFR 103; Globulin 2.1 g/dL (2.4-3.5); Glucose 108 mg/dL (70-105); Potassium 3.5 mmol/L (3.5-5.1); Protein, Total 5.6 g/dL (6.0-8.3); Sodium 139 mmol/L (136-145)
[2024-06-25] MEDS ORDERED: Iopamidol-370 76% 500 ML MDV (1 ML CHARGE) ONE (15:53)
[2024-06-25 16:01] LABS: Band 27 % (5-11); Large Platelets 21.2 % (0-5); Lymphocytes 6 % (21-51); Monocytes 3 % (0-10); Neutrophil 64 % (42-75); Nucleated RBC (Manual Ct) 3 % (0); Ovalocytes SLIGHT = 2-5 cells HPF (0-1); Platelet Adequacy Comment Platelets Decreased; Polychromasia SLIGHT = 2-3 cells HPF (0-2); Tear Drops SLIGHT = 2-5 cells HPF (0-1)
[2024-06-25] MEDS ORDERED: Acetaminophen 325 MG TAB PO PRN (18:04)
[2024-06-25] MEDS ORDERED: Promethazine HCl 25 MG in Sodium Chloride 0.9% 50 ML IVPB PRN (18:04)
[2024-06-25 18:09] LABS: Lactic Acid 3.66 mmol/L (0.5-2.2)
[2024-06-25] MEDS: Vancomycin (BATCH) 2.5 GM in Premix 1 BAG IVPB SCH (18:20)
[2024-06-25 18:25] VITALS: BMI 39.1
[2024-06-25] MEDS: Atorvastatin Calcium 40 MG TAB PO SCH (20:33)
[2024-06-25] MEDS: Morphine 4 MG/ML VIAL SLOW IVP PRN (20:34)
[2024-06-25] MEDS ORDERED: Vancomycin 1 GM in Premix 1 BAG IVPB SCH (21:00)
[2024-06-25] MEDS: Ketorolac Tromethamine 30 MG (1 mL) VIAL IVP SCH (22:39)
[2024-06-26] MEDS: Vancomycin (BATCH) 1.5 GM in Premix 1 BAG IVPB SCH (00:15)
[2024-06-26] MEDS: Cefepime 2 GM in Sodium Chloride 0.9% 100 ML IVPB SCH (04:16)
[2024-06-26 04:37] LABS: Hematocrit 27.5 % (42.0-52.0); Hemoglobin 9.6 g/dL (14.0-18.0); Mean Corpuscular HGB CONC 34.9 g/dL (32.0-36.0); Mean Corpuscular Hemoglobin 30.9 pg (27.0-31.0); Mean Corpuscular Volume 88.4 fL (78.0-98.0); Platelet Count 60 10x3/uL (130-400); RBC Distribution Width 14.7 % (11.5-14.5); Red Blood Cell (RBC) Count 3.11 mill/uL (4.70-6.10)
[2024-06-26 04:57] LABS: Anion Gap 11 mmol/L (10-20); BUN (Urea Nitrogen) 10 mg/dL (8.4-25.7); Calc. Creatinine Clearance 185 mL/min (70-130); Calcium 8.2 mg/dL (7.8-10.44); Carbon Dioxide 20 mmol/L (22-29); Chloride 114 mmol/L (98-107); Estimated GFR 109; Glucose 172 mg/dL (70-105); Sodium 141 mmol/L (136-145)
[2024-06-26 05:35] LABS: Band 13 % (5-11); Large Platelets 22.3 % (0-5); Lymphocytes 16 % (21-51); Monocytes 5 % (0-10); Neutrophil 67 % (42-75); Nucleated RBC (Manual Ct) 1 % (0); Platelet Adequacy Comment Platelets Decreased; RBC Morphology Within Normal Limits; Smudge Cells 3.9 %
[2024-06-26] MEDS: Lisinopril 20 MG TAB PO SCH (08:26)
[2024-06-26] MEDS: Escitalopram Oxalate 10 mg Tablet PO SCH (08:26)
[2024-06-26] MEDS: Enoxaparin 40 MG (0.4 mL) SYRINGE SC SCH (08:29)
[2024-06-26] MEDS ORDERED: Docusate 100 MG CAP PO PRN (11:13)
[2024-06-26] MEDS ORDERED: Benzonatate 100 MG CAP PO PRN (11:20)
[2024-06-26] MEDS: guaiFENesin/DM ER PO SCH ×2 (12:17→20:48)
[2024-06-26] MEDS: Morphine ER 15 MG TAB PO SCH (12:22)
[2024-06-26] MEDS: Morphine IR Tab 15 MG TAB PO PRN (16:46)
[2024-06-27] MEDS: Melatonin 3 MG TAB PO SCH (01:19)
[2024-06-27 04:09] LABS: Hematocrit 26.4 % (42.0-52.0); Mean Corpuscular HGB CONC 34.1 g/dL (32.0-36.0); Mean Corpuscular Hemoglobin 30.6 pg (27.0-31.0); Mean Corpuscular Volume 89.8 fL (78.0-98.0); Platelet Count 63 10x3/uL (130-400); RBC Distribution Width 15.1 % (11.5-14.5); Red Blood Cell (RBC) Count 2.94 mill/uL (4.70-6.10)
[2024-06-27 04:15] LABS: Vancomycin, Random 29.6 ug/mL (See Comment)
[2024-06-27 04:16] LABS: Anion Gap 14 mmol/L (10-20); BUN (Urea Nitrogen) 9 mg/dL (8.4-25.7); Calc. Creatinine Clearance 182 mL/min (70-130); Calcium 7.8 mg/dL (7.8-10.44); Carbon Dioxide 23 mmol/L (22-29); Chloride 110 mmol/L (98-107); Estimated GFR 108; Glucose 106 mg/dL (70-105); Sodium 143 mmol/L (136-145)
[2024-06-27 04:33] LABS: Anisocytosis SLIGHT = 6-15 cells HPF (0-5); Band 11 % (5-11); Elliptocytes SLIGHT = 2-5 cells HPF (0-1); Large Platelets 35.1 % (0-5); Lymphocytes 24 % (21-51); Monocytes 22 % (0-10); Neutrophil 43 % (42-75); Nucleated RBC (Manual Ct) 3 % (0); Platelet Adequacy Comment Platelets Decreased; Polychromasia SLIGHT = 2-3 cells HPF (0-2); Smudge Cells 2.7 %
[2024-06-27] MEDS: Morphine ER 15 MG TAB PO SCH (09:18)
[2024-06-27] MEDS: Albuterol 200 PUFF (6.7GM INHALER) INH PRN (12:19)
[2024-06-27] MEDS ORDERED: [UNRECOGNIZED DRUG - REMARK] FS PRN (12:58)
[2024-06-27] MEDS: Albuterol 200 PUFF (6.7GM INHALER) INH SCH (13:30)
[2024-06-27] MEDS: Ipratropium/Albuterol 3 ML NEB NEB PRN (13:32)
[2024-06-27] MEDS: Azithromycin 500 MG in Sodium Chloride 0.9% 250 ML 250 ML IVPB SCH (14:32)
[2024-06-27] MEDS: Benzonatate 100 MG CAP PO SCH (14:33)
[2024-06-27] MEDS: predniSONE 20 MG TAB PO SCH (14:33)
[2024-06-27] MEDS: Cefepime 2 GM in Sodium Chloride 0.9% 100 ML IVPB SCH (16:04)
[2024-06-27] MEDS ORDERED: Doxycycline 100 MG CAP PO SCH (21:00)
[2024-06-27] MEDS: Bisacodyl 5 MG TAB PO PRN (21:42)
[2024-06-27] MEDS: Senokot S 8.6-50 MG TAB PO SCH (21:43)
[2024-06-28 06:53] LABS: Anion Gap 13 mmol/L (10-20); BUN (Urea Nitrogen) 12 mg/dL (8.4-25.7); Calc. Creatinine Clearance 187 mL/min (70-130); Calcium 8.2 mg/dL (7.8-10.44); Carbon Dioxide 26 mmol/L (22-29); Chloride 109 mmol/L (98-107); Estimated GFR 109; Glucose 93 mg/dL (70-105); Potassium 4.1 mmol/L (3.5-5.1); Sodium 144 mmol/L (136-145)
[2024-06-28 07:02] LABS: Band 9 % (5-11); Eosinophils 2 % (0-10); Large Platelets 24.2 % (0-5); Lymphocytes 36 % (21-51); Monocytes 9 % (0-10); Neutrophil 39 % (42-75); Nucleated RBC (Manual Ct) 3 % (0); Platelet Adequacy Comment Platelets Decreased; Polychromasia SLIGHT = 2-3 cells HPF (0-2); Reactive Lymphocytes 3 % (0-10); Smudge Cells 7.1 %
[2024-06-28 07:03] LABS: Hematocrit 26.6 % (42.0-52.0); Hemoglobin 9.3 g/dL (14.0-18.0); Mean Corpuscular Hemoglobin 30.9 pg (27.0-31.0); Mean Corpuscular Volume 88.3 fL (78.0-98.0); Platelet Count 59 10x3/uL (130-400); RBC Distribution Width 15.1 % (11.5-14.5); Red Blood Cell (RBC) Count 2.98 mill/uL (4.70-6.10)
[2024-06-28] MEDS: predniSONE 20 MG TAB PO SCH (08:58)
[2024-06-28] MEDS: valACYclovir 500 MG TAB PO SCH (10:49)
[2024-06-28] MEDS: Ipratropium/Albuterol 3 ML NEB NEB SCH (15:23)
[2024-06-28 17:19] LABS: Legionella Urinary Ag Negative (Negative); Strep pneumo Urine Ag NEGATIVE (NEGATIVE)
[2024-06-29] MEDS: Escitalopram Oxalate 10 mg Tablet PO SCH (09:23)
[2024-06-29] MEDS: valACYclovir 500 MG TAB PO SCH (09:23)
[2024-06-29 17:36] LABS: Hematocrit 26.3 % (42.0-52.0); Hemoglobin 9.1 g/dL (14.0-18.0); Mean Corpuscular HGB CONC 34.6 g/dL (32.0-36.0); Mean Corpuscular Hemoglobin 30.7 pg (27.0-31.0); Mean Corpuscular Volume 88.9 fL (78.0-98.0); Platelet Count 65 10x3/uL (130-400); Red Blood Cell (RBC) Count 2.96 mill/uL (4.70-6.10)
[2024-06-29 17:54] LABS: ALT (SGPT) 23 U/L (8-55); AST (SGOT) 20 U/L (5-34); Albumin 3.3 g/dL (3.5-5.0); Alkaline Phosphatase 40 U/L (40-110); Anion Gap 10 mmol/L (10-20); BUN (Urea Nitrogen) 13 mg/dL (8.4-25.7); Bilirubin, Total 0.4 mg/dL (0.2-1.2); Calc. Creatinine Clearance 163 mL/min (70-130); Calcium 8.2 mg/dL (7.8-10.44); Carbon Dioxide 23 mmol/L (22-29); Chloride 109 mmol/L (98-107); Estimated GFR 105; Globulin 2.5 g/dL (2.4-3.5); Glucose 129 mg/dL (70-105); Potassium 4.4 mmol/L (3.5-5.1); Protein, Total 5.8 g/dL (6.0-8.3); Sodium 138 mmol/L (136-145)
[2024-06-29 18:01] LABS: Band 5 % (5-11); Large Platelets 45.5 % (0-5); Lymphocytes 14 % (21-51); Neutrophil 82 % (42-75); Nucleated RBC (Manual Ct) 5 % (0); Platelet Adequacy Comment Platelets Decreased; Polychromasia SLIGHT = 2-3 cells HPF (0-2); Tear Drops SLIGHT = 2-5 cells HPF (0-1)
[2024-06-29] MEDS: Lisinopril 5 MG TAB PO SCH (21:34)
[2024-06-30 07:53] VITALS: BP 146/84; TEMP 97.8
== END 2024-06-30 11:25 | disposition home or self-care (01) | DRG 871 ==
LOC: ERS 13:43 → ERHOLD 16:35 → MSONC 18:06 → OBSVTOIN 06-27 09:55 → SURG A 06-27 19:46
PROVIDERS: ADMIT Internal Medicine; ATTEND Internal Medicine
DX: A41.9 Sepsis, unspecified organism (principal); J18.9 Pneumonia, unspecified organism; C90.00 Multiple myeloma not having achieved remission; E87.20 Acidosis, unspecified; D70.1 Agranulocytosis secondary to cancer chemotherapy; T45.1X5A Adverse effect of antineoplastic and immunosuppressive drugs, initial encounter; I10 Essential (primary) hypertension; E78.5 Hyperlipidemia, unspecified; E66.9 Obesity, unspecified; G89.29 Other chronic pain; R65.20 Severe sepsis without septic shock; D69.6 Thrombocytopenia, unspecified; G47.33 Obstructive sleep apnea (adult) (pediatric); F41.9 Anxiety disorder, unspecified; F17.200 Nicotine dependence, unspecified, uncomplicated; Z88.5 Allergy status to narcotic agent; Z79.899 Other long term (current) drug therapy; Z88.0 Allergy status to penicillin; Z92.21 Personal history of antineoplastic chemotherapy; Z68.39 Body mass index [BMI] 39.0-39.9, adult
CPT/HCPCS: 36415; 36416; 71045; 71275; 80048; 80053; 80202; 82805; 83605; 83735; 83880; 84145; 85025; 87040; 87070; 87081; 87205; 87428; 87449; 87633; 87899; 93005; 93010; 94640; 94760; 96365; 96366; 96367; 96374; 96375; 96376; G0378; J0456; J0692; J1642; J1885; J2272; J2405; J3370; J7050; J7512; J7611; J7620; Q9967

== ENCOUNTER 2025-02-07 11:48 | Day surgery (SDC) | payer BC ==
[2025-02-07] MEDS ORDERED: diphenhydrAMINE 25 MG CAP ONE (13:46)
[2025-02-07] MEDS ORDERED: Acetaminophen 500 MG TAB ONE (13:46)
[2025-02-07] MEDS: diphenhydrAMINE 25 MG CAP PO SCH (13:47)
[2025-02-07] MEDS: Acetaminophen 500 MG TAB PO SCH (13:47)
[2025-02-07 16:47] VITALS: BP 117/59; TEMP 99.1
== END 2025-02-07 16:49 | disposition home or self-care (01) ==
LOC: ONC/OP 11:48
PROVIDERS: ATTEND Internal Medicine Hematology & Oncology
DX: D64.9 Anemia, unspecified (principal); D69.6 Thrombocytopenia, unspecified
CPT/HCPCS: 36430; 86850; 86900; 86901; J1642; P9016

== ENCOUNTER → 2025-02-14 | Day surgery (SDC) | payer BC ==
[~2025-02-14] MED LIST changes: +Acetaminophen 500 MG TAB ONE; -Iopamidol 370 76% 100 ML VIAL ONE; +diphenhydrAMINE 25 MG CAP ONE
[2025-02-14] MEDS: diphenhydrAMINE 25 MG CAP PO SCH (11:22)
[2025-02-14] MEDS: Acetaminophen 500 MG TAB PO SCH (11:23)
[2025-02-14 14:18] VITALS: BP 134/62; TEMP 99
== END ==
LOC: ONC/OP 09:40
PROVIDERS: ATTEND Internal Medicine Hematology & Oncology
DX: D64.9 Anemia, unspecified (principal); D69.6 Thrombocytopenia, unspecified
CPT/HCPCS: 36430; 86850; 86900; 86901; J1642; P9016

== ENCOUNTER 2025-02-22 08:16 | Day surgery (SDC) | payer BC ==
[2025-02-22] MEDS ORDERED: Acetaminophen 500 MG TAB ONE (08:55)
[2025-02-22] MEDS ORDERED: diphenhydrAMINE 25 MG CAP ONE (08:55)
[2025-02-22] MEDS: Acetaminophen 500 MG TAB PO SCH (08:56)
[2025-02-22] MEDS: diphenhydrAMINE 25 MG CAP PO SCH (08:56)
[2025-02-22] MEDS ORDERED: PNEUMOC 20-VAL CONJ-DIP CRM/PF 0.5 ML SYRINGE IM ONE (11:00)
[2025-02-22 14:10] VITALS: BP 124/59; TEMP 99.7
== END 2025-02-22 14:30 | disposition home or self-care (01) ==
LOC: ONC/OP 08:16
PROVIDERS: ATTEND Internal Medicine Hematology & Oncology
DX: D64.9 Anemia, unspecified (principal); D69.6 Thrombocytopenia, unspecified
CPT/HCPCS: 36430; 86850; 86900; 86901; J1642; P9016

== ENCOUNTER 2025-02-28 10:06 | Day surgery (SDC) | payer BC ==
[2025-02-28] MEDS ORDERED: Acetaminophen 500 MG TAB ONE (11:04)
[2025-02-28] MEDS ORDERED: diphenhydrAMINE 25 MG CAP ONE (11:04)
[2025-02-28] MEDS: Acetaminophen 500 MG TAB PO SCH (11:05)
[2025-02-28] MEDS: diphenhydrAMINE 25 MG CAP PO SCH (11:05)
[2025-02-28 11:45] VITALS: BP 135/63
[2025-02-28 14:55] VITALS: TEMP 99.3
[2025-03-02] MEDS ORDERED: PNEUMOC 20-VAL CONJ-DIP CRM/PF 0.5 ML SYRINGE IM ONE (09:00)
== END 2025-02-28 14:35 | disposition home or self-care (01) ==
LOC: ONC/OP 10:06
PROVIDERS: ATTEND Internal Medicine Hematology & Oncology
DX: D64.9 Anemia, unspecified (principal); D69.6 Thrombocytopenia, unspecified
CPT/HCPCS: 36430; 86850; 86900; 86901; J1642; P9040

== ENCOUNTER 2025-03-07 10:27 | Day surgery (SDC) | payer BC ==
[2025-03-07] MEDS ORDERED: diphenhydrAMINE 25 MG CAP ONE (11:19)
[2025-03-07] MEDS: diphenhydrAMINE 25 MG CAP PO SCH (11:20)
[2025-03-07] MEDS: Acetaminophen 500 MG TAB PO SCH (11:20)
[2025-03-07 15:59] VITALS: BP 124/59; TEMP 99.5
== END 2025-03-07 16:06 | disposition home or self-care (01) ==
LOC: ONC/OP 10:27
PROVIDERS: ATTEND Nurse Practitioner Family
DX: D64.9 Anemia, unspecified (principal); D69.6 Thrombocytopenia, unspecified
CPT/HCPCS: 36430; 86850; 86900; 86901; J1642; P9016; P9040

== ENCOUNTER 2025-03-21 08:33 | Day surgery (SDC) | payer BC ==
[2025-03-21] MEDS ORDERED: diphenhydrAMINE 25 MG CAP ONE (09:09)
[2025-03-21] MEDS ORDERED: Acetaminophen 500 MG TAB ONE (09:09)
[2025-03-21] MEDS: Acetaminophen 500 MG TAB PO SCH (09:10)
[2025-03-21] MEDS: diphenhydrAMINE 25 MG CAP PO SCH (09:10)
[2025-03-21] MEDS ORDERED: PNEUMOC 20-VAL CONJ-DIP CRM/PF 0.5 ML SYRINGE IM ONE (09:15)
[2025-03-21 14:27] VITALS: BP 125/64; TEMP 99.4
== END 2025-03-21 14:34 | disposition home or self-care (01) ==
LOC: ONC/OP 08:33
PROVIDERS: ATTEND Internal Medicine Hematology & Oncology
DX: D64.9 Anemia, unspecified (principal); D69.6 Thrombocytopenia, unspecified
CPT/HCPCS: 36430; 86850; 86900; 86901; J1642; P9016

== ENCOUNTER 2025-03-28 12:38 | Inpatient (IN) | payer BC, MEDICARE, OTHER ==
[2025-03-28 13:33] LABS: Hematocrit 20.9 % (42.0-52.0); Hemoglobin 7.2 g/dL (14.0-18.0); Mean Corpuscular Hemoglobin 29.0 pg (27.0-31.0); Mean Corpuscular Volume 84.3 fL (78.0-98.0); Platelet Count 24 10x3/uL (130-400); Red Blood Cell (RBC) Count 2.48 mill/uL (4.70-6.10); White Blood Cell (WBC) Count 0.71 10x3/uL (4.8-10.8)
[2025-03-28 13:41] LABS: ALT (SGPT) 14 U/L (Less than 45); AST (SGOT) 12 U/L (11-34); Albumin 3.3 g/dL (3.1-4.5); Alkaline Phosphatase 60 U/L (40-110); Anion Gap 15 mmol/L (10-20); BUN (Urea Nitrogen) 8 mg/dL (8.4-25.7); Bilirubin, Total 0.7 mg/dL (0.3-1.2); Calc. Creatinine Clearance 0 mL/min (70-130); Calcium 8.3 mg/dL (7.8-10.44); Carbon Dioxide 21 mmol/L (22-29); Chloride 108 mmol/L (98-107); Globulin 2.7 g/dL (2.4-3.5); Glucose 121 mg/dL (70-105); Potassium 3.3 mmol/L (3.5-5.1); Sodium 141 mmol/L (136-145)
[2025-03-28 14:02] LABS: Nucleated RBC (Manual Ct) 15 % (0); Platelet Adequacy Comment Platelets Decreased; Schistocytes SLIGHT = 2-5 cells HPF (0-1); Smudge Cells 4.3 %
[2025-03-28] MEDS ORDERED: Cefepime 2 GM VIAL ONE (14:21)
[2025-03-28] MEDS ORDERED: Ondansetron PF 4 MG/2 ML Vial ONE (14:21)
[2025-03-28] MEDS ORDERED: Acetaminophen 500 MG TAB ONE (14:21)
[2025-03-28] MEDS ORDERED: VANCOMYCIN 2 GRAM/400 ML BAG ONE (15:08)
[2025-03-28 15:46] LABS: Bacteria/HPF None Seen HPF (None Seen); CAUTI Indications for Culture Fever or rigors; Glucose, Urine (Dipstick) Normal (Negative); Leukocyte Negative Leu/uL (Negative); Protein, Urine (Dipstick) Negative (Neg-Trace); RBC/HPF 0-3 HPF (0-3); Specific Gravity, Urine 1.012 (1.002-1.036); WBC/HPF 0-3 HPF (0-3)
[2025-03-28 15:47] LABS: Urine Culture Reflex No No
[2025-03-28] MEDS ORDERED: Ondansetron PF 4 MG/2 ML Vial IVP PRN (15:49)
[2025-03-28] MEDS: VANCOMYCIN 2 GRAM/400 ML Premix BAG IVPB SCH (16:08)
[2025-03-28] MEDS: diphenhydrAMINE 50 MG/ML VIAL IVP SCH (17:42)
[2025-03-28 18:02] VITALS: BMI 35.5
[2025-03-28] MEDS: Famotidine/PF 20 mg/2ml Vial SLOW IVP SCH (21:07)
[2025-03-28] MEDS: Mupirocin 1 GM TUBE NASAL DECOLONIZATION NASAL SCH (21:08)
[2025-03-28] MEDS: Vancomycin 1 GM in Premix 1 BAG IVPB SCH (21:08)
[2025-03-29 04:22] LABS: #Basophils Less than 0.03 10x3/uL (0.0-0.2); #Eosinophils Less than 0.03 10x3/uL (0.0-0.7); #Monocytes 0.08 10x3/uL (0.11-0.59); #Neutrophils 0.38 10x3/uL (1.40-6.50); %Basophils 2.3 % (0.0-1.0); %Eosinophils 0.0 % (0.0-10.0); %Lymphocytes 34.5 % (21.0-51.0); %Monocytes 9.2 % (0.0-10.0); %Neutrophils 43.7 % (42.0-75.0); Hematocrit 23.7 % (42.0-52.0); Hemoglobin 8.1 g/dL (14.0-18.0); Mean Corpuscular Hemoglobin 29.1 pg (27.0-31.0); Mean Corpuscular Volume 85.3 fL (78.0-98.0); Platelet Count 19 10x3/uL (130-400); Red Blood Cell (RBC) Count 2.78 mill/uL (4.70-6.10); Vancomycin, Random 14.1 ug/mL (See Comment); White Blood Cell (WBC) Count 0.87 10x3/uL (4.8-10.8)
[2025-03-29 04:26] LABS: ALT (SGPT) 11 U/L (Less than 45); AST (SGOT) 7 U/L (11-34); Albumin 3.2 g/dL (3.1-4.5); Anion Gap 13 mmol/L (10-20); BUN (Urea Nitrogen) 9 mg/dL (8.4-25.7); Bilirubin, Total 0.6 mg/dL (0.3-1.2); Calc. Creatinine Clearance 177 mL/min (70-130); Calcium 8.0 mg/dL (7.8-10.44); Carbon Dioxide 23 mmol/L (22-29); Chloride 110 mmol/L (98-107); Globulin 2.5 g/dL (2.4-3.5); Glucose 131 mg/dL (70-105); Potassium 3.8 mmol/L (3.5-5.1); Sodium 142 mmol/L (136-145)
[2025-03-29 04:34] LABS: Alkaline Phosphatase 48 U/L (40-110)
[2025-03-29] MEDS: Vancomycin 1.5 GM / NS 500 ML VIAL-2-BAG IVPB SCH (09:48)
[2025-03-29] MEDS: Sulfameth/Trimethoprim DS 800-160mg TAB PO SCH (09:52)
[2025-03-29] MEDS: valACYclovir 500 MG TAB PO SCH (09:53)
[2025-03-29] MEDS: Acetaminophen 325 MG TAB PO PRN (13:49)
[2025-03-30 05:28] LABS: Hematocrit 23.0 % (42.0-52.0); Hemoglobin 7.7 g/dL (14.0-18.0); Mean Corpuscular Hemoglobin 28.7 pg (27.0-31.0); Mean Corpuscular Volume 85.8 fL (78.0-98.0); Platelet Count 15 10x3/uL (130-400); Red Blood Cell (RBC) Count 2.68 mill/uL (4.70-6.10); White Blood Cell (WBC) Count 0.74 10x3/uL (4.8-10.8)
[2025-03-30 05:40] LABS: ALT (SGPT) 11 U/L (Less than 45); AST (SGOT) 7 U/L (11-34); Albumin 3.0 g/dL (3.1-4.5); Alkaline Phosphatase 43 U/L (40-110); Anion Gap 12 mmol/L (10-20); BUN (Urea Nitrogen) 12 mg/dL (8.4-25.7); Bilirubin, Total 0.5 mg/dL (0.3-1.2); Calc. Creatinine Clearance 188 mL/min (70-130); Calcium 7.9 mg/dL (7.8-10.44); Carbon Dioxide 24 mmol/L (22-29); Chloride 109 mmol/L (98-107); Globulin 2.2 g/dL (2.4-3.5); Glucose 84 mg/dL (70-105); Potassium 3.6 mmol/L (3.5-5.1); Sodium 141 mmol/L (136-145)
[2025-03-30 05:56] LABS: Anisocytosis SLIGHT = 6-15 cells HPF (0-5); Nucleated RBC (Manual Ct) 4 % (0); Platelet Adequacy Comment Platelets Decreased; Polychromasia SLIGHT = 2-3 cells HPF (0-2)
[2025-03-30] MEDS: Guaifenesin DM 100-10/5 ML UDCUP PO PRN (09:13)
[2025-03-30 13:44] VITALS: BP 116/76; TEMP 98
== END 2025-03-30 13:55 | disposition home or self-care (01) | DRG 864 ==
LOC: ERS 12:38 → MSONC 16:07
PROVIDERS: ADMIT Internal Medicine; ATTEND Hospitalist
PROC: 3E03329 Introduction of Other Anti-infective into Peripheral Vein, Percutaneous Approach (ICD-10-PCS; principal; 2025-03-28)
PROC: 30233N1 Transfusion of Nonautologous Red Blood Cells into Peripheral Vein, Percutaneous Approach (ICD-10-PCS; 2025-03-28)
DX: R50.9 Fever, unspecified (principal); C90.00 Multiple myeloma not having achieved remission; T78.2XXA Anaphylactic shock, unspecified, initial encounter; Z94.81 Bone marrow transplant status; D61.818 Other pancytopenia; T80.89XA Other complications following infusion, transfusion and therapeutic injection, initial encounter; D70.2 Other drug-induced agranulocytosis; E78.5 Hyperlipidemia, unspecified; I10 Essential (primary) hypertension; F41.9 Anxiety disorder, unspecified; T50.Z15A Adverse effect of immunoglobulin, initial encounter; Z98.61 Coronary angioplasty status; Z98.890 Other specified postprocedural states; Z88.8 Allergy status to other drugs, medicaments and biological substances; Z88.0 Allergy status to penicillin; Z79.899 Other long term (current) drug therapy; Z87.01 Personal history of pneumonia (recurrent); Z88.5 Allergy status to narcotic agent; Z86.16 Personal history of COVID-19; Z87.891 Personal history of nicotine dependence; R50.81 Fever presenting with conditions classified elsewhere
CPT/HCPCS: 36415; 36430; 71045; 80053; 80202; 81001; 83605; 83880; 84484; 85025; 86850; 86900; 86901; 86922; 87040; 87426; 93005; 96365; 96375; J0692; J1200; J3373; J3375; J7030; P9016

== ENCOUNTER 2025-04-03 10:35 | Day surgery (SDC) | payer MEDICARE, OTHER ==
[2025-04-03] MEDS: diphenhydrAMINE 25 MG CAP PO SCH (11:52)
[2025-04-03] MEDS: Acetaminophen 500 MG TAB PO SCH (11:52)
[2025-04-03 15:22] VITALS: BP 135/63; TEMP 99.7
[2025-04-03] MEDS ORDERED: PNEUMOC 20-VAL CONJ-DIP CRM/PF 0.5 ML SYRINGE IM ONE (15:45)
[2025-04-03] MEDS ORDERED: FLU (Fluarix Triv) 25-26 (6MOS UP)/PF 45 MCG/0.5 ML Syringe IM ONE (15:45)
== END 2025-04-03 14:40 | disposition home or self-care (01) ==
LOC: ONC/OP 10:35
PROVIDERS: ATTEND Internal Medicine Hematology & Oncology
DX: D64.9 Anemia, unspecified (principal); D69.6 Thrombocytopenia, unspecified
CPT/HCPCS: 36430; 86850; 86900; 86901; 86920; J1642; P9016